=== PATIENT | male | born 2005 | race Two or more races ===

== ENCOUNTER 2023-05-02 23:38 | Emergency (ER) | payer MEDICAID, OTHER ==
[~2023-05-02] VITALS: Ht 162.6 cm; Wt 49.0 kg
[2023-05-02 23:50] VITALS: BP 137/85; PULSE 87; RESP 16; O2SAT 95
== END 2023-05-03 02:54 | disposition left against medical advice (07) ==
LOC: ER 23:38
DX: S02.0XXA Fracture of vault of skull, initial encounter for closed fracture (principal); Y04.2XXA Assault by strike against or bumped into by another person, initial encounter; Y93.89 Activity, other specified; Y92.89 Other specified places as the place of occurrence of the external cause; Y99.8 Other external cause status
CPT/HCPCS: 70450; 70486; 72125